=== PATIENT | female | born 1940 | race Caucasian/White ===

== ENCOUNTER 2023-02-04 09:48 | Emergency (ER) | payer OTHER ==
[~2023-02-04] VITALS: Ht 160 cm; Wt 69.0 kg
[2023-02-04 09:51] VITALS: O2SAT 98
[2023-02-04] MEDS ORDERED: ACETAMINOPHEN WITH CODEINE 300/30MG TABLET PO ONE (10:15)
[2023-02-04] MEDS ORDERED: NAPR-1176 MT (11:48)
[2023-02-04 15:13] VITALS: BP 114/76; PULSE 87; RESP 18; TEMP 98.1
== END 2023-02-04 15:14 | disposition home or self-care (01) ==
LOC: ER 09:48
DX: M25.551 Pain in right hip (principal); I10 Essential (primary) hypertension; E11.9 Type 2 diabetes mellitus without complications
CPT/HCPCS: 73502; 73552; 99284